=== PATIENT | female | born 1985 | race Caucasian/White ===

== ENCOUNTER → 2022-12-31 | Outpatient (CLI) | payer SELFPAY ==
--- NOTE | 2022-12-31 10:35 | US_ITS ---
INDICATION: AUTOIMMUNE THYROIDITIS EXAMINATION: Ultrasound US Thyroid (eg thyroid, parathyroid, parotid) TECHNIQUE: Daniel scale and color doppler imaging was performed of the thyroid gland. COMPARISON: No relevant prior comparison study available FINDINGS: RIGHT THYROID LOBE: 5.5 x 1.7 x 1.6 cm. The echotexture is heterogenous. [There is a colloid cyst measuring up to 0.5 x 0.4 x 0.5 cm. Within the posterior midpole there is a 1.0 x 0.7 x 0.7 cm solid nodule with a hypoechoic margin and no internal vascularity nor microcalcifications. LEFT THYROID LOBE: 4.3 x 1.5 x 1.6 cm. The echotexture is heterogenous. [No thyroid nodules are present. ISTHMUS: 0.3 cm. No thyroid nodules are present. US/Thyroid IMPRESSION: Heterogenous and enlarged thyroid gland suggestive of thyroiditis. 1.0 x 0.7 x 0.7 cm solid nodule within the left lobe of the gland. Electronically Signed: Laury Post MD at 16:14 EST ,
== END | disposition home or self-care (01) ==
LOC: US 10:31
PROVIDERS: PCP Family Medicine
DX: E06.3 Autoimmune thyroiditis (principal)
CPT/HCPCS: 76536

== ENCOUNTER → 2024-05-01 | Outpatient (CLI) | payer OTHER, SELFPAY ==
--- NOTE | 2024-05-01 15:38 | US_ITS ---
PROCEDURE: PELVIC W/ TRANSVAGINAL (USPELTVAG), 05/01/2024 REASON FOR EXAM: HIGH AMH TECHNIQUE: Grayscale and color/spectral doppler transabdominal and transvaginal pelvic ultrasound was performed. COMPARISON: None FINDINGS: Uterus: 10.2 x 4.7 x 3.7 cm, Anteverted. Unremarkable echotexture. Endometrium: 7 mm, trilaminar proliferative phase appearance. Punctate echogenic likely calcification in the fundus, doubtful clinical significance. Cervix: Unremarkable. Right ovary: 3.7 x 3.5 x 2.2 cm (estimated volume 14.8 mL). Normal arterial waveforms. Peripheral lysed follicles better depicted on transabdominal imaging, however not clearly increased in number. Slightly echogenic central stroma. Left ovary: 4.5 x 3.1 x 3.6 cm (estimated volume 26.1 mL). Normal low resistance arterial waveforms. Peripheralized follicles noted, however not clearly increased in number. Slightly echogenic central stroma. Free fluid: None visualized. Other: Estimated bladder volume 333 mL.. US/Pelvic w/ Transvaginal IMPRESSION: 1. No acute abnormality. 2. Peripheralized location of follicles within the slightly enlarged LEFT LEFT- [id number] ovary with slightly echogenic central stroma, features which have been described as associated with polycysti c ovarian syndrome, however this is not diagnostic. Correlate with clinical factors. 3. Punctate fundal endometrial calcification, doubtful clinical significance. Correlate for previous endometrial instrumentation. 4. Additional description as above. Reading Location: [id number]
--- NOTE | 2024-05-01 15:41 | US_ITS ---
PROCEDURE: THYROID (USTHY), 05/01/2024 REASON FOR EXAM: THYROID NODULE TECHNIQUE: Grayscale and color Doppler imaging of the thyroid was performed. COMPARISON: None FINDINGS: Right lobe measures 5.6 x 2.1 x 1.5cm. Essentially homogeneous echotexture. No abnormal vascularity. Nodules as below: *Midgland, 5 x 4 x 4 mm, probably solid and very hypoechoic, TI-RADS 4. Previously 5 x 4 x 5 mm. *Midgland, 11 x 9 x 8 mm, solid, isoechoic, ill-defined margins, possible pseudonodule, TI-RADS 3. Previously 10 x 7 x 7 mm. Left lobe measures 4.6 x 1.8 x 1.1 cm. Essentially homogeneous echotexture. No abnormal vascularity. No solid or mostly solid nodules are identified. Isthmus measures 3 mm in thickness. US/Thyroid IMPRESSION: 1. Assessment is TI-RADS 4. No nodules currently meet criteria for FNA or follo w-up. 2. Normal size gland with essentially homogeneous background echotexture. No a bnormal vascularity. Management recommendations for TI-RADS 3 findings: FNA if = 2.5 cm; Follow if = 1.5 cm at 1, 3, and 5 years. Management recommendations for TI-RADS 4 findings: FNA if = 1.5 cm; Follow if = 1 cm at 1, 2, 3, and 5 years. Recommendations per ACR Thyroid Imaging, Reporting and Data System (TI-RADS): Naldo spears Paper of the ACR TI-RADS Committee, 2017 ([email or web address]) Reading Location: [id number]
== END | disposition home or self-care (01) ==
PROVIDERS: PCP Family Medicine; Referring Provider Physician Assistant Medical
DX: E04.1 Nontoxic single thyroid nodule (principal); R79.89 Other specified abnormal findings of blood chemistry
CPT/HCPCS: 76536; 76830; 76856